=== PATIENT | female | born 1945 | race Caucasian/White ===

== ENCOUNTER → 2018-11-13 08:19 | Outpatient (CLI) | payer MEDICARE, OTHER, SELFPAY ==
[2018-11-13 10:33] LABS: Add Manual Diff / Slide Review NO; Basophils Absolute Auto 100 /uL (0-100); Basophils Percent Auto 1.6 % (0-2); Eosinophils Absolute Auto 200 /uL (0-450); Eosinophils Percent Auto 4.3 % (2-4); Hematocrit 40.7 % (36-46); Hemoglobin 13.6 g/dL (12.0-16.0); Lymphocytes Absolute Auto 700 /uL (1100-4500); Lymphocytes Percent Auto 18.1 % (25-40); Mean Corpuscular HGB Conc 33.6 % (30-36); Mean Corpuscular Hemoglobin 33.4 PG (26-34); Mean Corpuscular Volume 99.5 fL (80-100); Monocytes Absolute Auto 300 /uL (0-900); Monocytes Percent Auto 8.9 % (3-14); Neutrophils Absolute Auto 2500 /uL (1500-7000); Neutrophils Percent Auto 67.1 % (50-75); Platelet Count 317 X10^3/uL (150-400); Red Blood Cell Count 4.09 X10^6/uL (4.0-5.2); Red Cell Distribution Width 12.3 % (11.6-14.8); White Blood Cell Count 3.8 X10^3/uL (4.5-11.0)
[2018-11-13 11:02] LABS: Alanine Aminotransferase 26 IU/L (9-52); Albumin 4.4 g/dL (3.5-5.0); Albumin Globulin Ratio 1.7 (1.0-2.8); Alkaline Phosphatase 73 U/L (38-126); Aspartate Aminotransferase 32 IU/L (14-36); BUN Creatinine Ratio 21.4 (6-22); Bilirubin Total 0.8 mg/dL (0.2-1.3); Blood Urea Nitrogen 15 mg/dL (7-17); Calcium 9.1 mg/dL (8.4-10.2); Carbon Dioxide 29 mmol/L (22-32); Chloride 101 mmol/L (98-107); Cholesterol 195 mg/dL (140-199); Estimated Glomerular Filt Rate > 60.0 mL/min (>60); Globulin 2.6 g/dL (1.7-4.1); Glucose 89 mg/dL (80-110); HDL Cholesterol 72 mg/dL (40-60); HEMOLYSIS < 15 (0-50); LDL Cholesterol Calculated 105 mg/dL (<100); Sodium 140 mmol/L (137-145); Triglycerides 90 mg/dL (35-150)
[2018-11-13 11:15] LABS: Vitamin D 25 Hydroxy (D3) 50.6 ng/mL (30.0-100.0)
[2018-11-13 11:29] LABS: Thyroid Stimulating Hormone 1.57 uIU/mL (0.47-4.68)
[2018-11-14 16:21] LABS: Hepatitis B Surf AB Imm QUANT 249 mIU/mL (> 9)
== END ==
PROVIDERS: Family Provider Family Medicine; PCP Family Medicine; Referring Provider Obstetrics & Gynecology; Visit Provider Family Medicine
DX: E78.5 Hyperlipidemia, unspecified (principal); M85.89 Other specified disorders of bone density and structure, multiple sites; R89.9 Unspecified abnormal finding in specimens from other organs, systems and tissues; Z13.0 Encounter for screening for diseases of the blood and blood-forming organs and certain disorders involving the immune mechanism; Z13.1 Encounter for screening for diabetes mellitus; Z13.29 Encounter for screening for other suspected endocrine disorder; Z01.84 Encounter for antibody response examination
CPT/HCPCS: 36415; 80053; 80061; 82306; 84443; 85025; 86317

== ENCOUNTER → 2018-12-27 12:38 | Outpatient (CLI) | payer MEDICARE, OTHER, SELFPAY | PROVIDERS: Family Provider Family Medicine; PCP Family Medicine; Visit Provider Family Medicine | DX: M85.851 Other specified disorders of bone density and structure, right thigh (principal); Z78.0 Asymptomatic menopausal state; Z82.62 Family history of osteoporosis | CPT/HCPCS: 77080 ==

== ENCOUNTER 2020-01-12 11:23 | Emergency (ER) | payer MEDICARE, OTHER, SELFPAY ==
[2020-01-12] VITALS (11 sets, daily range): BP systolic 139–185; BP diastolic 66–80; PULSE 70–84; RESP 16–27; TEMP 36.7; O2SAT 96–100; BMI 19.5
--- NOTE | 2020-01-12 11:50 | ED_ITS ---
HPI - Arrhythmia/Palpitations General Chief Complaint: Arrhythmia/Palpitations Stated Complaint: Cardiac arrhythmia Time Seen by Provider: 01/12/20 11:39 Source: patient and family Mode of arrival: Family Vehicle Limitations: no limitations History of Present Illness HPI narrative: CC: Palpitations HPI: The patient is a 74-year-old female who came into the emergency department because she has been having palpitations with an irregular heartbeat and can feel PVCs. She denies any chest pain dizziness or lightheadedness. She states when she bends over and suddenly stands up she becomes dizzy and lightheaded. However, she has not passed out or had a syncopal attack. This only lasts for a few seconds. She has had no cough, no chest pain no shortness of breath no abdominal pain nausea or vomiting. She has had no diarrhea. Yesterday while her and she were out walking and hiking she had a run of a rapid heart rate that was approximately 120 and very irregular and questionably represented PSVT or atrial fibrillation. 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 They called their primary care physician at the [facility] who sent them into the emergency department to be further evaluated. She does not smoke cigarettes chew tobacco vape or use marijuana or any other drugs. She does periodically drink alcohol . She denies any fever chills or sweats any change in vision loss of vision shortness of breath cough chest pain back ache abdominal pain nausea or vomiting, diarrhea or urinary symptoms. Related Data Home Medications Medication Instructions Recorded Confirmed ASPIRIN (Aspirin) 81 mg PO Q DAY #0 10/12/11 12/19/19 loratadine [Claritin] 10 mg PO Q DAY #0 11/02/11 12/19/19 calcium carbonate 600 mg calcium 600 mg PO BID 12/19/19 12/19/19 (1,500 mg) tablet cholecalciferol (vitamin D3) 50 50 mcg PO DAILY 12/19/19 12/19/19 mcg (2,000 unit) capsule Previous Rx's Medication Instructions Recorded epinephrine 0.3 mg/0.3 mL 0.3 mg IM ONCE #1 each 03/08/18 injection, auto-injector simvastatin 40 mg tablet See Rx Instructions .ROUTE 04/17/19 .COMPLEX #90 tablet diltiazem HCl [Cardizem CD] 120 mg PO DAILY #30 cap 01/12/20 Allergies Allergy/AdvReac Type Severity Reaction Status Date / Time No Known Drug Allergies Allergy Verified 01/12/20 11:41 Review of Systems Review of Systems Narrative: Her review of systems were all negative except for those mentioned in the history of present illness. Patient History Surgical History History of cataract removal with insertion of prosthetic lens History of third molar tooth extraction Status post breast biopsy Family History Brother Diabetes mellitus Father Diabetes mellitus Hypertension Mother Cancer of esophagus Social History household members: spouse pets and animals: No education level: college occupational status: employed [employer]ennifer/[employer]aeism: [place] leisure activities: other other: Whatever I Like seatbelt use: always water heater temp set < 120 deg: Yes working smoke detector in home: Yes fire extinguisher in home: Yes carbon monox detector in home: No Smoking Status: Never smoker alcohol intake: current substance use type: does not use during the past year weight has: remained stable well-balanced diet: daily or most days daily servings fruits/ve-4 caffeine: Yes (1-2 caffeine drinks per day) eating out: other Type(s) of exercise: other frequency: daily duration: other Smoking Status: Never smoker alcohol intake frequency: 0-2 drinks per day Substance Use Type: does not use Exam Narrative Exam Narrative: PHYSICAL EXAM: CONSTITUTIONAL: Awake, Alert, Oriented, Coherent, Cooperative in NAD. Does not appear toxic or ill. HEAD: AT/NC EENT: PERRL, FROM of eyes, no discharge. NOSE:No epistaxis or nasal drainage MOUTH:Oral mucosa is moist and pink, posterior pharynx is without erythema or exudate. NECK: Supple, no obvious JVD, Trachea is midline without stridor. SPINE: Palpation of the cervical, Thoracic, Lumbar or Sacral spine reveals no gross deformity or tenderness. No CVA tenderness. THORAX: No deformity, retractions, chest wall tenderness. LUNGS: Clear, symmetrical breath sounds without respiratory distress. HEART: Heart tones are periodically irregular but most often regular without murmur. ABDOMEN: Soft, non-tender, without guarding, rebound, rigidity or palpable mass. EXTREMITIES: No edema, deformity, calf tenderness . SKIN: No rash, bruising, NEURO: Awake, alert, oriented, conversive, cranial nerves II-XII are symmetrical , moves all 4 extremities and is ambulatory. MENTAL HEALTH: Does not appear anxious or depressed. Initial Vital Signs Initial Vital Signs: Vital Signs Temperature 98.1 F 01/12/20 11:27 Pulse Rate 70 01/12/20 11:27 Respiratory Rate 16 01/12/20 11:27 Blood Pressure 185/80 H 01/12/20 11:27 Pulse Oximetry 99 01/12/20 11:27 Course Course Course Narrative: 1305: Laboratory chemistries remain pending at this time. 1343: All of the patient's chemistries are within normal limits except her TSH remains pending. I explained to the patient that PVCs can be normal as well as PACs. However because she had a rapid rate of supraventricular rhythm yesterday that may have been atrial fibrillation she needs to be seen by Cardiology and have an echocardiogram and Holter monitor performed. I will call Cardiology Dr. erum mcneil at [facility] to discuss the patient and arrange follow up. The patient and her a retired orthopedic surgeon were informed that I was calling Dr. Hart the [facility]. 1400: I discussed the patient with Dr. Hart. He recommended that the patient needs to have her hypercalcemia evaluated. He recommended that her primary care physician Dr. Weiss order a 7 day 0 patch monitor and an echocardiogram. He recommended that the patient be started on 120 mg of Cardizem per day. Orders Ordered: ED Orders 01/12/20 11:34 Complete Blood Count AUTO DIFF Stat 01/12/20 12:30 Comprehensive Metabolic Panel Stat Magnesium Stat Thyroid Stimulating Hormone Stat Troponin & CK Cardiac Panel Stat Discontinued Medications Diltiazem HCl (Cardizem Cd) 120 mg PO NOW ONE Stop: 01/12/20 14:06 Last Admin: 01/12/20 14:12 Dose: 120 mg Documented by: ARIEL Sodium Chloride (Normal Saline 0.9%) 1,000 mls @ 1,000 mls/hr IV BOLUS ONE Stop: 01/12/20 13:04 Last Infusion: 01/12/20 13:53 Dose: 0 mls/hr Documented by: Admin: 01/12/20 12:46 Dose: 1,000 mls/hr Documented by: ARIEL Vital Signs Vital signs: Vital Signs - 8 hr 01/12/20 11:27 01/12/20 12:18 01/12/20 12:21 Temperature 98.1 F Pulse Rate 70 79 84 Pulse Rate [Orthostatic Lying] Pulse Rate [Orthostatic Sitting] Pulse Rate [Orthostatic Standing] Respiratory Rate 16 27 H 27 H Blood Pressure 185/80 H 139/66 140/70 Blood Pressure [Orthostatic Lying] Blood Pressure [Orthostatic Sitting] Blood Pressure [Orthostatic Standing] Pulse Oximetry 99 100 98 01/12/20 12:24 01/12/20 12:35 01/12/20 13:00 Temperature Pulse Rate 76 76 Pulse Rate [Orthostatic Lying] 75 Pulse Rate [Orthostatic Sitting] 79 Pulse Rate [Orthostatic Standing] 83 Respiratory Rate 27 H 16 Blood Pressure Blood Pressure [Orthostatic Lying] 164/72 H Blood Pressure [Orthostatic Sitting] 139/66 Blood Pressure [Orthostatic Standing] 140/70 Pulse Oximetry 97 100 01/12/20 13:37 01/12/20 13:38 01/12/20 14:00 Temperature Pulse Rate 77 78 77 Pulse Rate [Orthostatic Lying] Pulse Rate [Orthostatic Sitting] Pulse Rate [Orthostatic Standing] Respiratory Rate 23 21 Blood Pressure 162/71 H 155/67 H Blood Pressure [Orthostatic Lying] Blood Pressure [Orthostatic Sitting] Blood Pressure [Orthostatic Standing] Pulse Oximetry 96 100 100 01/12/20 14:16 01/12/20 14:30 Temperature Pulse Rate 79 74 Pulse Rate [Orthostatic Lying] Pulse Rate [Orthostatic Sitting] Pulse Rate [Orthostatic Standing] Respiratory Rate 18 19 Blood Pressure 158/72 H 162/67 H Blood Pressure [Orthostatic Lying] Blood Pressure [Orthostatic Sitting] Blood Pressure [Orthostatic Standing] Pulse Oximetry MDM - Arrhythmia/Palpitations Medical Records Attestation: I reviewed the patient's medical records. Lab Data Attestation: I reviewed the patient's lab results. Result diagrams: 01/12/20 11:34 01/12/20 12:30 Labs: Lab Results 01/12/20 01/12/20 01/12/20 Range/Units 11:34 12:30 12:30 WBC 6.2 (4.5-11.0) X10^3/uL RBC 4.32 (4.0-5.2) X10^6/uL Hgb 14.4 (12.0-16.0) g/dL Hct 43.1 (36-46) % MCV 99.9 (80-100) fL MCH 33.4 (26-34) PG MCHC 33.5 (30-36) % RDW 12.6 (11.6-14.8) % Plt Count 339 (150-400) X10^3/uL Neut % (Auto) 71.3 (50-75) % Lymph % (Auto) 15.7 L (25-40) % Barren % (Auto) 10.7 (3-14) % Eos % (Auto) 1.8 L (2-4) % Baso % (Auto) 0.5 (0-2) % Neut # (Auto) 4400 (3998-2724) /uL Lymph # (Auto) 1000 L (5761-3115) /uL Barren # (Auto) 700 (0-900) /uL Eos # (Auto) 100 (0-450) /uL Baso # (Auto) 0 (0-100) /uL Sodium 139 (137-145) mmol/L Potassium 4.4 (3.4-5.1) mmol/L Chloride 103 (98-107) mmol/L Carbon Dioxide 32 (22-32) mmol/L BUN 12 (7-17) mg/dL Creatinine 0.66 (0.52-1.04) mg/dL Estimated GFR > 60.0 (>60) mL/min BUN/Creatinine Ratio 18.2 (6-22) Glucose 80 (80-110) mg/dL Calcium 10.6 H (8.4-10.2) mg/dL Magnesium 2.1 (1.6-2.3) mg/dL Total Bilirubin 0.5 (0.2-1.3) mg/dL AST 26 (14-36) IU/L ALT 13 (<35) IU/L Alkaline Phosphatase 71 (38-126) U/L Total Creatine Kinase 28 L (30-135) U/L CK-MB (CK-2) TNP CK-MB (CK-2) Rel Index TNP Troponin I < 0.012 (0.01-0.034) ng/mL Total Protein 7.3 (6.3-8.2) g/dL Albumin 4.7 (3.5-5.0) g/dL Globulin 2.6 (1.7-4.1) g/dL Albumin/Globulin Ratio 1.8 (1.0-2.8) TSH 1.80 (0.47-4.68) uIU/mL Urine Dip Bedside Urine Glucose Negative Bedside Urine Bilirubin - Negative Bedside Urine Ketone - Negative Urine Specific [place] 1.010 Bedside Urine Occult Blood - Negative Bedside Urine pH 7.0 Bedside Urine Protein - Negative Bedside Urine Urobilinogen - Negative Bedside Urine Nitrite - Negative Bedside Urine Leukocytes - Negative Esterase ECG Data Attestation: I personally reviewed and interpreted this ECG as follows: Interpretation: 1140: The patient's EKG obtained at 11:3 12:40 a.m. reveals a sinus rhythm with a ventricular rate of 80. The patient has premature atrial contractures. Her MO interval is normal at 138 QRS is normal at 82 and her QTC is normal at 440 milliseconds. Her axis is normal borderline right axis deviation. Her EKG reveals no acute diagnostic ST segment changes. Her T-waves are inverted in V1 which is a normal variant and has small R waves in lead V1. There are no acute diagnostic changes. Discharge Plan Departure Patient Disposition: Home Clinical Impression: Atrial arrhythmia, Frequent PVCs, H/O supraventricular tachycardia, Hypercalcemia, Palpitations Discharge Date/Time: 01/12/20 14:53 Instructions: DI for Atrial Fibrillation, DI for Arrhythmias, DI for Hyperc alcemia, DI for Paroxysmal Supraventricular Tachycardia Activity Restrictions/Additional Instructions: 1. Follow-up with Dr. Weiss your primary care physician to further evaluate your hypercalcemia and repeat your calcium. Dr. danielson were recommended that he schedule you for a 7 day 0 patch monitoring and an echocardiogram. After those are ordered schedule a an appointment with [facility]. 2. To make sure that you are well hydrated you need to drink between 2 and 4 L of fluid per day. 3. Take Cardizem CD 100 20 mg per day as prescribed. 4. If you develop chest pain and discomfort, shortness of breath, rapid heart rate, dizziness or feeling faint as though to pass out at the time that this is occurring you need to proceed to the nearest emergency department to be re- evaluated. Prescriptions: New diltiazem HCl [Cardizem CD] 120 mg capsule,extended release 24hr 120 mg PO DAILY Qty: 30 RF: 0 No Action ASPIRIN (Aspirin) 81 mg PO Q DAY Qty: 0 RF: 0 loratadine [Claritin] 10 MG tablet 10 mg PO Q DAY Qty: 0 RF: 0 epinephrine [EpiPen 2-Emmanuel] 0.3 mg/0.3 mL auto-injector 0.3 mg IM ONCE Qty: 1 RF: 0 simvastatin 40 mg tablet See Rx Instructions .ROUTE .COMPLEX Qty: 90 RF: 2 calcium carbonate 600 mg calcium (1,500 mg) tablet 600 mg PO BID RF: 0 cholecalciferol (vitamin D3) 50 mcg (2,000 unit) capsule 50 mcg PO DAILY RF: 0 Referrals: Marlo Weiss MD [Primary Care Provider] -
[2020-01-12 12:25] LABS: Add Manual Diff / Slide Review NO; Basophils Absolute Auto 0 /uL (0-100); Basophils Percent Auto 0.5 % (0-2); Eosinophils Absolute Auto 100 /uL (0-450); Eosinophils Percent Auto 1.8 % (2-4); Hematocrit 43.1 % (36-46); Hemoglobin 14.4 g/dL (12.0-16.0); Lymphocytes Absolute Auto 1000 /uL (1100-4500); Lymphocytes Percent Auto 15.7 % (25-40); Mean Corpuscular HGB Conc 33.5 % (30-36); Mean Corpuscular Hemoglobin 33.4 PG (26-34); Mean Corpuscular Volume 99.9 fL (80-100); Monocytes Absolute Auto 700 /uL (0-900); Monocytes Percent Auto 10.7 % (3-14); Neutrophils Absolute Auto 4400 /uL (1500-7000); Neutrophils Percent Auto 71.3 % (50-75); Platelet Count 339 X10^3/uL (150-400); Red Blood Cell Count 4.32 X10^6/uL (4.0-5.2); Red Cell Distribution Width 12.6 % (11.6-14.8); White Blood Cell Count 6.2 X10^3/uL (4.5-11.0)
[2020-01-12] MEDS: SODIUM CHLORIDE 0.9% 1,000 ML 1000 ML IV (12:46)
[2020-01-12 13:10] LABS: Alanine Aminotransferase 13 IU/L (<35); Albumin 4.7 g/dL (3.5-5.0); Albumin Globulin Ratio 1.8 (1.0-2.8); Alkaline Phosphatase 71 U/L (38-126); Aspartate Aminotransferase 26 IU/L (14-36); BUN Creatinine Ratio 18.2 (6-22); Bilirubin Total 0.5 mg/dL (0.2-1.3); Blood Urea Nitrogen 12 mg/dL (7-17); Calcium 10.6 mg/dL (8.4-10.2); Carbon Dioxide 32 mmol/L (22-32); Chloride 103 mmol/L (98-107); Creatine Kinase 28 U/L (30-135); Estimated Glomerular Filt Rate > 60.0 mL/min (>60); Globulin 2.6 g/dL (1.7-4.1); Glucose 80 mg/dL (80-110); HEMOLYSIS < 15 (0-50); Magnesium 2.1 mg/dL (1.6-2.3); Potassium 4.4 mmol/L (3.4-5.1); Sodium 139 mmol/L (137-145); Total Protein 7.3 g/dL (6.3-8.2)
[2020-01-12 13:20] LABS: Troponin I < 0.012 ng/mL (0.01-0.034)
[2020-01-12] MEDS: dilTIAZem CD 120 MG CAP PO (14:12)
== END 2020-01-12 14:53 | disposition home or self-care (01) ==
PROVIDERS: Emergency Provider Emergency Medicine; Family Provider Family Medicine; PCP Family Medicine
DX: I49.8 Other specified cardiac arrhythmias (principal); I48.91 Unspecified atrial fibrillation; E83.52 Hypercalcemia; R00.2 Palpitations; Z79.82 Long term (current) use of aspirin; Z86.79 Personal history of other diseases of the circulatory system
CPT/HCPCS: 36415; 80053; 81003; 82550; 83735; 84443; 84484; 85025; 93005; 96360; 99284

== ENCOUNTER → 2020-01-22 08:35 | Outpatient (CLI) | payer MEDICARE, OTHER, SELFPAY ==
[2020-01-22 08:59] LABS: Add Manual Diff / Slide Review NO; Basophils Absolute Auto 0 /uL (0-100); Basophils Percent Auto 0.9 % (0-2); Eosinophils Absolute Auto 200 /uL (0-450); Eosinophils Percent Auto 3.3 % (2-4); Hematocrit 39.9 % (36-46); Hemoglobin 13.2 g/dL (12.0-16.0); Lymphocytes Absolute Auto 700 /uL (1100-4500); Lymphocytes Percent Auto 14.1 % (25-40); Mean Corpuscular HGB Conc 33.1 % (30-36); Mean Corpuscular Hemoglobin 33.1 PG (26-34); Mean Corpuscular Volume 99.8 fL (80-100); Monocytes Absolute Auto 400 /uL (0-900); Monocytes Percent Auto 8.2 % (3-14); Neutrophils Absolute Auto 3800 /uL (1500-7000); Neutrophils Percent Auto 73.5 % (50-75); Platelet Count 306 X10^3/uL (150-400); Red Cell Distribution Width 12.6 % (11.6-14.8); White Blood Cell Count 5.2 X10^3/uL (4.5-11.0)
[2020-01-22 09:13] LABS: Alanine Aminotransferase 17 IU/L (<35); Albumin 4.3 g/dL (3.5-5.0); Albumin Globulin Ratio 1.7 (1.0-2.8); Alkaline Phosphatase 76 U/L (38-126); Aspartate Aminotransferase 31 IU/L (14-36); BUN Creatinine Ratio 19.7 (6-22); Bilirubin Total 0.8 mg/dL (0.2-1.3); Blood Urea Nitrogen 13 mg/dL (7-17); Calcium 9.3 mg/dL (8.4-10.2); Carbon Dioxide 31 mmol/L (22-32); Chloride 105 mmol/L (98-107); Cholesterol 174 mg/dL (140-199); Estimated Glomerular Filt Rate > 60.0 mL/min (>60); Globulin 2.5 g/dL (1.7-4.1); Glucose 105 mg/dL (80-110); HDL Cholesterol 61 mg/dL (40-60); HEMOLYSIS < 15 (0-50); LDL Cholesterol Calculated 96 mg/dL (<100); Potassium 4.9 mmol/L (3.4-5.1); Sodium 139 mmol/L (137-145); Total Protein 6.8 g/dL (6.3-8.2); Triglycerides 85 mg/dL (35-150)
[2020-01-22 10:04] LABS: Thyroid Stimulating Hormone 1.26 uIU/mL (0.47-4.68)
== END ==
PROVIDERS: Family Provider Family Medicine; PCP Family Medicine; Referring Provider Family Medicine; Visit Provider Family Medicine
DX: E78.2 Mixed hyperlipidemia (principal)
CPT/HCPCS: 36415; 80053; 80061; 84443; 85025

== ENCOUNTER → 2020-01-25 06:34 | Outpatient (CLI) | payer MEDICARE, OTHER, SELFPAY ==
--- NOTE | 2020-01-25 07:18 | DI.ECHO.S_ITS ---
Echocardiogram Report + + :Name: VERONICA WILSON Study Date: 01/25/2020 Height: 66 in : :[facility] Weight: 119 lb : : Gender: Female BSA: 1.6 m2 : :: 1945 Age: 74 yrs BP: 110/70 mmHg: :Reason For Study: Arrhythmia : :Ordering Physician: Dr. Sellers : :Abhishek Performed By: Mila Senior : + + Interpretation Summary 1) Small left ventricular cavity with normal wall motion and normal systolic function (EF 60-65%). 2) Normal right ventricular size and function. 3) No significant valvular abnormalities. 4) No prior Echo available for comparison. Procedure: A two-dimensional transthoracic echocardiogram with color flow and Doppler was performed. The study quality was technically adequate. There is no prior echocardiogram noted for this patient. The patient was in normal sinus rhythm during the exam. Left Ventricle: The left ventricular cavity is small. Left ventricular wall thickness is at the upper limits of normal. There is no ventricular septal defect visualized. The ejection fraction is estimated to be 60-65%. Left ventricular systolic function is normal. There are no focal wall motion abnormalities. Diastolic parameters suggest probable normal left ventricular diastolic function and normal filling pressures. Right Ventricle: The right ventricle is normal in size and function. Atria: Both atria are normal in size. A prominent eustachian valve is noted. There is no Doppler evidence for an interatrial shunt. Mitral Valve: The mitral valve is normal in structure and function. There is trace mitral regurgitation. Aortic Valve: The aortic valve is trileaflet. The aortic valve opens well. There is mild aortic valve sclerosis. There is no aortic valve stenosis. No aortic regurgitation is present. Tricuspid Valve: The tricuspid valve is normal in structure and function. There is a trace or physiologic amount of tricuspid regurgitation. The right ventricular systolic pressure is estimated to be at least 22 mmHg based on an estimated right atrial pressure of 3 mm Hg. Pulmonic Valve: The pulmonic valve is not well seen, but is grossly normal. Great Vessels: The aortic root is normal size. The ascending aorta is normal in size. The aortic arch is normal in size. The IVC is of normal diameter and collapses greater than 50% with a sniff. This suggests a low right atrial pressure of 3 mm Hg. Pericardium/ Pleura There is no pericardial effusion. MMode/2D Measurements & Calculations LVIDd: 3.5 cm LVOT diam: 1.9 cm LVIDs: 2.2 cm Ao root diam: 2.9 cm FS: 36.3 % asc Aorta Diam: 2.7 cm EPSS: 0.48 cm Ao Arch Diam (Prox Trans): 2.6 cm IVSd: 0.90 cm LVPWd: 0.86 cm LV avalos. diameter/BSA (cm/m^2): 2.2 LV sys. diameter/BSA (cm/m^2): 1.4 LA A2 area: 16.9 cm2 RA long axis: 5.0 cm LA A4 area: 17.5 cm2 RA area: 14.8 cm2 LA length (vol): 5.2 cm RA vol: 37.1 ml LA vol: 48.8 ml RA : 23.1 ml/m2 LA vol index: 30.4 ml/m2 IVC diam: 1.7 cm RVD1 (basal): 2.7 cm RVD2 (mid): 1.9 cm TAPSE: 2.2 cm Doppler Measurements & Calculations Ao V2 max: 116.2 cm/sec LVOT Max Juan Jose: 93.3 cm/sec Ao V2 mean: 78.2 cm/sec LV V1 max P.5 mmHg Ao max P.4 mmHg LV V1 VTI: 24.0 cm Ao mean P.8 mmHg OLIVIA(I,D): 2.6 cm2 Ao V2 VTI: 27.5 cm OLIVIA(V,D): 2.4 cm2 sev ratio: 0.87 OLIVIA indexed to BSA (cm^2/m^2): 1.6 MV E max juan jose: 84.1 cm/sec TR max juan jose: 217.4 cm/sec MV A max juan jose: 76.0 cm/sec TR max P.9 mmHg MV E/A: 1.1 PA V2 max: 87.1 cm/sec Med Peak E' Juan Jose: 9.3 cm/sec PA V2 mean: 58.6 cm/sec E/E' med: 9.1 PA mean P.6 mmHg Lat Peak E' Juan Jose: 9.5 cm/sec PA Accel Time: 0.14 sec E/E' lat: 8.8 E/e' average: 9.0 MV dec time: 0.17 sec MV P1/2t: 51.9 msec MV P1/2t max juan jose: 84.2 cm/sec SV(LVOT): 71.4 ml MVA(P1/2t): 4.2 cm2 Reading Physician:07:07 PM
== END ==
PROVIDERS: Family Provider Family Medicine; PCP Family Medicine; Referring Provider Family Medicine; Visit Provider Family Medicine
DX: I35.8 Other nonrheumatic aortic valve disorders (principal); I49.8 Other specified cardiac arrhythmias
CPT/HCPCS: 93306

== ENCOUNTER → 2021-06-25 10:46 | Outpatient (CLI) | payer MEDICARE, OTHER, SELFPAY ==
[2021-06-25 11:41] LABS: Hematocrit 40.9 % (36-46); Hemoglobin 13.9 g/dL (12.0-16.0); Mean Corpuscular Hemoglobin 33.3 PG (26-34); Mean Corpuscular Volume 97.7 fL (80-100); Platelet Count 382 X10^3/uL (150-400); Red Blood Cell Count 4.19 X10^6/uL (4.0-5.2); Red Cell Distribution Width 12.7 % (11.6-14.8); White Blood Cell Count 6.1 X10^3/uL (4.5-11.0)
[2021-06-25 12:07] LABS: Alanine Aminotransferase 16 IU/L (<35); Albumin 4.6 g/dL (3.5-5.0); Albumin Globulin Ratio 1.9 (1.0-2.8); Alkaline Phosphatase 86 U/L (38-126); Aspartate Aminotransferase 30 IU/L (14-36); BUN Creatinine Ratio 21.9 (6-22); Bilirubin Total 0.6 mg/dL (0.2-1.3); Blood Urea Nitrogen 16 mg/dL (7-17); Calcium 10.1 mg/dL (8.4-10.2); Carbon Dioxide 28 mmol/L (22-32); Chloride 105 mmol/L (98-107); Estimated Glomerular Filt Rate > 60.0 mL/min (>60); Globulin 2.4 g/dL (1.7-4.1); Glucose 90 mg/dL (80-110); HEMOLYSIS 16 (0-50); Potassium 4.9 mmol/L (3.4-5.1); Sodium 141 mmol/L (137-145)
[2021-06-25 12:14] LABS: Prealbumin 26.7 mg/dL (17.6-36.0)
[2021-06-25 12:37] LABS: TSH w/ Reflex to FT4 1.37 uIU/mL (0.47-4.68)
== END ==
PROVIDERS: Family Provider Family Medicine; PCP Student in an Organized Health Care Education/Training Program; Referring Provider Student in an Organized Health Care Education/Training Program; Visit Provider Student in an Organized Health Care Education/Training Program
DX: E78.2 Mixed hyperlipidemia (principal); R63.6 Underweight; M85.89 Other specified disorders of bone density and structure, multiple sites
CPT/HCPCS: 36415; 80053; 84134; 84443; 85027

== ENCOUNTER → 2021-06-29 14:16 | Outpatient (CLI) | payer MEDICARE, OTHER, SELFPAY ==
[2021-06-30 14:12] LABS: Fecal Immunochemical Test Negative (Negative)
== END ==
PROVIDERS: Family Provider Family Medicine; PCP Student in an Organized Health Care Education/Training Program; Referring Provider Student in an Organized Health Care Education/Training Program; Visit Provider Student in an Organized Health Care Education/Training Program
DX: Z12.11 Encounter for screening for malignant neoplasm of colon (principal)
CPT/HCPCS: 82274

== ENCOUNTER → 2021-07-13 12:48 | Outpatient (CLI) | payer MEDICARE, OTHER, SELFPAY | PROVIDERS: Family Provider Family Medicine; PCP Student in an Organized Health Care Education/Training Program; Referring Provider Student in an Organized Health Care Education/Training Program; Visit Provider Student in an Organized Health Care Education/Training Program | DX: M85.852 Other specified disorders of bone density and structure, left thigh (principal); Z78.0 Asymptomatic menopausal state | CPT/HCPCS: 77080 ==

== ENCOUNTER → 2022-09-06 08:22 | Outpatient (CLI) | payer MEDICARE, OTHER, SELFPAY ==
[2022-09-06 09:24] LABS: Add Manual Diff / Slide Review NO; Basophils Absolute Auto 0 /uL (0-100); Basophils Percent Auto 0.8 % (0-2); Eosinophils Absolute Auto 200 /uL (0-450); Eosinophils Percent Auto 4.7 % (2-4); Hematocrit 40.2 % (36-46); Hemoglobin 13.4 g/dL (12.0-16.0); Lymphocytes Absolute Auto 800 /uL (1100-4500); Lymphocytes Percent Auto 18.1 % (25-40); Mean Corpuscular HGB Conc 33.4 % (30-36); Mean Corpuscular Volume 98.8 fL (80-100); Monocytes Absolute Auto 400 /uL (0-900); Monocytes Percent Auto 8.1 % (3-14); Neutrophils Absolute Auto 3200 /uL (1500-7000); Neutrophils Percent Auto 68.3 % (50-75); Platelet Count 295 X10^3/uL (150-400); Red Blood Cell Count 4.07 X10^6/uL (4.0-5.2); Red Cell Distribution Width 12.5 % (11.6-14.8); White Blood Cell Count 4.7 X10^3/uL (4.5-11.0)
[2022-09-06 09:43] LABS: Alanine Aminotransferase 19 IU/L (<35); Albumin 4.2 g/dL (3.5-5.0); Albumin Globulin Ratio 1.8 (1.0-2.8); Alkaline Phosphatase 76 U/L (38-126); Aspartate Aminotransferase 26 IU/L (14-36); BUN Creatinine Ratio 20.3 (6-22); Bilirubin Total 0.6 mg/dL (0.2-1.3); Blood Urea Nitrogen 14 mg/dL (7-17); Calcium 9.1 mg/dL (8.4-10.2); Carbon Dioxide 29 mmol/L (22-32); Chloride 104 mmol/L (98-107); Cholesterol 192 mg/dL (140-199); Estimated Glomerular Filt Rate > 60 mL/min (>60); Globulin 2.4 g/dL (1.7-4.1); Glucose 93 mg/dL (80-110); HDL Cholesterol 70 mg/dL (40-60); HEMOLYSIS < 15 (0-50); LDL Cholesterol Calculated 103 mg/dL (<100); Potassium 4.4 mmol/L (3.4-5.1); Sodium 139 mmol/L (137-145); Total Protein 6.6 g/dL (6.3-8.2); Triglycerides 94 mg/dL (35-150)
[2022-09-06 10:14] LABS: TSH w/ Reflex to FT4 1.76 uIU/mL (0.47-4.68)
== END ==
PROVIDERS: Family Provider Family Medicine; PCP Family Medicine; Referring Provider Family Medicine; Visit Provider Family Medicine
DX: E78.5 Hyperlipidemia, unspecified (principal); Z13.9 Encounter for screening, unspecified
CPT/HCPCS: 36415; 80053; 80061; 84443; 85025

== ENCOUNTER → 2023-07-13 08:31 | Outpatient (CLI) | payer MEDICARE, OTHER, SELFPAY ==
[2023-07-13 09:41] LABS: Add Manual Diff / Slide Review NO; Basophils Absolute Auto 0 /uL (0-100); Basophils Percent Auto 0.7 % (0-2); Eosinophils Absolute Auto 100 /uL (0-450); Eosinophils Percent Auto 2.6 % (2-4); Hemoglobin 13.3 g/dL (12.0-16.0); Lymphocytes Absolute Auto 700 /uL (1100-4500); Lymphocytes Percent Auto 14.7 % (25-40); Mean Corpuscular HGB Conc 33.4 % (30-36); Mean Corpuscular Hemoglobin 33.1 PG (26-34); Mean Corpuscular Volume 99.2 fL (80-100); Monocytes Absolute Auto 500 /uL (0-900); Monocytes Percent Auto 9.9 % (3-14); Neutrophils Absolute Auto 3600 /uL (1500-7000); Neutrophils Percent Auto 72.1 % (50-75); Platelet Count 292 X10^3/uL (150-400); Red Blood Cell Count 4.03 X10^6/uL (4.0-5.2); Red Cell Distribution Width 12.6 % (11.6-14.8)
[2023-07-13 09:59] LABS: Alanine Aminotransferase 20 IU/L (<35); Albumin 4.1 g/dL (3.5-5.0); Albumin Globulin Ratio 1.6 (1.0-2.8); Alkaline Phosphatase 65 U/L (38-126); BUN Creatinine Ratio 19.4 (6-22); Bilirubin Total 0.8 mg/dL (0.2-1.3); Blood Urea Nitrogen 13 mg/dL (7-17); Calcium 9.4 mg/dL (8.4-10.2); Carbon Dioxide 30 mmol/L (22-32); Chloride 102 mmol/L (98-107); Cholesterol 185 mg/dL (140-199); Estimated Glomerular Filt Rate > 60 mL/min (>60); Globulin 2.6 g/dL (1.7-4.1); Glucose 101 mg/dL (80-110); HDL Cholesterol 51 mg/dL (40-60); HEMOLYSIS < 15 (0-50); LDL Cholesterol Calculated 112 mg/dL (<100); Potassium 4.8 mmol/L (3.4-5.1); Sodium 139 mmol/L (137-145); Total Protein 6.7 g/dL (6.3-8.2); Triglycerides 108 mg/dL (35-150)
[2023-07-13 10:25] LABS: Thyroid Stimulating Hormone 1.27 uIU/mL (0.47-4.68)
[2023-07-15 15:57] LABS: Aspartate Aminotransferase 33 IU/L (14-36)
== END ==
PROVIDERS: Family Provider Family Medicine; PCP Family Medicine; Referring Provider Family Medicine; Visit Provider Family Medicine
DX: Z13.9 Encounter for screening, unspecified (principal); E78.5 Hyperlipidemia, unspecified; E03.9 Hypothyroidism, unspecified; D64.9 Anemia, unspecified
CPT/HCPCS: 36415; 80053; 80061; 84443; 85025

== ENCOUNTER → 2023-08-24 08:23 | Outpatient (CLI) | payer MEDICARE, OTHER, SELFPAY ==
[2023-08-24 09:29] LABS: Cholesterol 173 mg/dL (140-199); HDL Cholesterol 53 mg/dL (40-60); LDL Cholesterol Calculated 96 mg/dL (<100); Triglycerides 121 mg/dL (35-150)
== END ==
PROVIDERS: Family Provider Family Medicine; PCP Family Medicine; Referring Provider Family Medicine; Visit Provider Family Medicine
DX: Z13.9 Encounter for screening, unspecified (principal)
CPT/HCPCS: 36415; 80061

== ENCOUNTER → 2023-10-22 15:47 | Outpatient (CLI) | payer MEDICARE, OTHER, SELFPAY ==
--- NOTE | 2023-10-22 | DI.MRI.S_ITS ---
PROCEDURE: MR LOWER LEG RT WO CON INDICATIONS: Pain in right lower leg TECHNIQUE: Noncontrast coronal and sagittal T1 spin echo and STIR; axial T1 spin echo and T2 fast spin echo with fat saturation through the right leg. COMPARISON: [facility] [place], CR, XR TIBIA FIBULA RIGHT, 10/14/2023, 11:52. FINDINGS: Image quality: Excellent. Bones: Mild periosteal edema of the anterior cortex of the distal tibia, likely representing grade 1 medial tibial stress syndrome/horton splints. No edema of the underlying distal tibial cortex. Marrow signal is normal for age. Soft tissues: Muscle signal is unremarkable. 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 IMPRESSION: Findings suggestive of grade 1 medial tibial stress syndrome/horton splint. Dictated by: Inés Robles M.D. on 10/24/2023 at 9:53 Approved by: Inés Robles M.D. on 10/24/2023 at 10:07
== END ==
LOC: MRI 15:47
PROVIDERS: Family Provider Family Medicine; PCP Family Medicine; Referring Provider Orthopaedic Surgery Foot and Ankle Surgery; Visit Provider Orthopaedic Surgery Foot and Ankle Surgery
DX: M79.661 Pain in right lower leg (principal)
CPT/HCPCS: 73718